=== PATIENT | male | born 1945 | race Caucasian/White ===

== ENCOUNTER 2018-10-02 10:00 | Inpatient (IN) ==
[2018-10-02 10:20] LABS: Baso % (Auto) 0.7 % (0.0-2.0); Eos # (Auto) 0.4 th/mm3 (0.0-0.4); Eos % (Auto) 7.3 % (0.0-4.0); Hematocrit 36.1 % (39.0-51.0); Hemoglobin 12.1 gm/dL (13.0-17.0); Lymph # (Auto) 1.7 th/mm3 (1.0-4.8); Lymph % (Auto) 29.9 % (9.0-44.0); Mean Corpuscular HGB Conc 33.5 % (32.0-36.0); Mean Corpuscular Volume 95.4 fL (80.0-100.0); Mean Platelet Volume 9.8 fL (7.0-11.0); Mono # (Auto) 0.6 th/mm3 (0.0-0.9); Mono % (Auto) 10.9 % (0.0-8.0); Neut % (Auto) 51.2 % (16.0-70.0); Platelet Count 241 th/mm3 (150-450); Red Blood Count 3.79 mil/mm3 (4.50-5.90); Red Cell Distribution Width 15.2 % (11.6-17.2); White Blood Count 5.8 th/mm3 (4.0-11.0)
[2018-10-02] MEDS ORDERED: Alteplase Bolus 9 MG/9 ML Syringe IV.PUSH ONE (10:21)
[2018-10-02] MEDS ORDERED: Alteplase Drip 81 MG in Syringe/Bag 1 EACH IV.SIG ONE (10:21)
--- NOTE | 2018-10-02 10:25 | CT ---
EXAM DATE: 10/02/2018 10:15 AM EST AGE/SEX: 73 years / Male INDICATIONS: Stroke alert, left side weakness. Slurred speech. CLINICAL DATA: This is the patient's initial encounter. Patient reports that signs and symptoms have been present for 1 day and indicates a pain score of Nonresponsive. MEDICAL/SURGICAL HISTORY: Non-responsive. Non-responsive. RADIATION DOSE: 47.56 CTDI (mGy) COMPARISON: . TECHNIQUE: CT of the head without contrast. Using automated exposure control and adjustment of the mA and/or kV according to patient size, radiation dose was kept as low as reasonably achievable to ob tain optimal diagnostic quality images. DICOM format image data is available electronically for revi ew and comparison. FINDINGS: Cerebrum: The ventricles are normal for age. No evidence of midline shift, mass lesion, hemorrhage or acute infarction. No extraaxial fluid collections are seen. Posterior Fossa: The cerebellum and brainstem are intact. The 4th ventricle is midline. The cerebe llopontine angle is unremarkable. Extracranial: The visualized portion of the orbits is intact. Skull: The calvaria is intact. No evidence of skull fracture. CONCLUSION: Negative CT Head non contrast. Findings were discussed with Dr. Marrufo at 10:15 AM Electronically signed by: Mazin Hitchcock MD Board Certified Radiologist 10/02/2018 10:24 AM EST
[2018-10-02 10:30] LABS: Activated Partial Thrombo Time 30.8 sec (23.4-31.7); Prothrombin Time 10.1 sec (9.8-11.6)
[2018-10-02 10:41] LABS: Creatine Kinase 156 U/L (39-308)
--- NOTE | 2018-10-02 10:42 | ED ---
HPI General Chief Complaint: Stroke Alert Stated Complaint: poss neuro/evac Time Seen by Provider: 10/02/18 10:03 Source: patient and EMS Mode of arrival: EMS Limitations: no limitations History of Present Illness HPI Narrative: 73 y/o male presents by ambulance with last seen normal at 930 as he was taking his for [place] [place] [facility] [place]. While he was at this appointment he started having issues with his speech and got weak on the left side. They called an ambulance and a stroke alert was initiated. His speech is better here in the room but he is still weak on the left side and feels tingling to that side as well. He denies any other concurrent complaints other than chronic back pain. He states he takes a baby aspirin daily. He denies prior history of stroke. Related Data Allergies Allergy/AdvReac Type Severity Reaction Status Date / Time No Known Allergies Allergy Uncoded 07/13/16 06:01 Review of Systems ROS: all other systems reviewed are negative PMFSH History History Provided By: Patient (Hypertension, high cholesterol, chronic back pain) Social History Social History Second Hand Smoke Exposure: No Smoking Status: Former smoker Tobacco Type: Cigarettes How Often Do You Have a Drink Containing Alcohol: Never Recent Travel in [facility] within the Last 8 Weeks: No Recent Out of Country Travel within the Last 8 Weeks: No Exam Narrative Exam Narrative: GENERAL: 73 y/o male in no apparent distress SKIN: Focused skin assessment warm/dry. HEAD: Atraumatic. Normocephalic. EYES: Pupils equal and round. No scleral icterus. No injection or drainage. ENT: No nasal bleeding or discharge. NECK: Trachea midline. CARDIOVASCULAR: Regular rate and rhythm. RESPIRATORY: No accessory muscle use. Clear to auscultation. Breath sounds equal bilaterally. GASTROINTESTINAL: Abdomen soft, non-tender, nondistended. MUSCULOSKELETAL: No obvious deformities. No clubbing. No cyanosis. NEUROLOGICAL: Awake and alert. Left-sided pronator drift, follows to bed before 5 seconds, left leg with minimal effort against gravity, able to feel touch but feels tingly to left-sided body normal speech. PSYCHIATRIC: Appropriate mood and affect; insight and judgment normal. Course Reevaluation(s) Reevaluation #1: Patient symptoms are starting to improve with TPA running. Patient agrees to admission Consultations Consultation #1: Dr. Wang agrees patient TPA candidate and to check CT brain and if normal to give TPA in scanner Consultation #2: Dr. Wang requests stat MRI with and without with admission Initial Documented Vital Signs Pulse Rate 67 10/02/18 10:03 Respiratory Rate 17 10/02/18 10:03 Blood Pressure 134/72 10/02/18 10:03 Pulse Oximetry 100 10/02/18 10:03 Last Documented Vital Signs Pulse Rate 61 10/02/18 11:37 Respiratory Rate 17 10/02/18 11:37 Blood Pressure 111/55 L 10/02/18 11:37 Pulse Oximetry 97 10/02/18 11:37 Critical Care Time Critical Care Time: Yes Total Critical Care Time: 50 Attestation: Aggregate critical care time was 50 minutes. Time to perform other separately billable procedures was not included in the critical care time. My time did not include minutes spent treating any other patients simultaneously or on activities that did not directly contribute to the patient's treatment. The services I provided to this patient were to treat and/or prevent clinically significant deterioration that could result in: stroke, bleed, I provided critical care services requiring my management, as noted below: Chart data review, documentation time, medication orders and management, vital sign assessments/reviewing monitor data, ordering and reviewing lab tests, ordering and interpreting/reviewing x-rays and diagnostic studies, care of the patient and discussion of the patient with the admitting physicians. NIH Stroke Scale NIHSS Time Completed NIHSS Time Completed: 10:00 NIH Stroke Scale Level of Consciousness: 0-Alert Orientation Questions: 0-Answers both correct Responds to Commands: 0-Both tasks correct Gaze Eye Movement: 0-Horizontal movement WNL Visual Nj: 0-No visual field defect Facial Movement: 0-Normal Motor Functions Arm LEFT: 2-Falls before 10 seconds Motor Functions Arm RIGHT: 0-No drift Motor Functions Leg LEFT: 3-No effort against gravity Motor Functions Leg RIGHT: 0-No drift Limb Ataxia: 0-No ataxia Sensory Loss: 1-Mild sensory loss Best Language: 0-Normal Articulation: 0-Normal Extinction or Inattention Sensory: 0-Absent Total: 6 Medical Decision Making MDM Narrative Medical decision making narrative: Stroke alert was initiated when patient arrived and initial examination showed a NIH of 6. I talked with the neurologist and went with patient to CT. I walked over to the radiologist and reviewed images and agree no acute process. TPA started to be mixed and was given before CTAs at 1024. Proceed with CTA imaging. Patient agreed to the TPA. Patient will be closely monitored. Medical Screen Exam Complete: Yes Emergency Medical Condition: Yes Differential Diagnosis Differential Diagnosis: bleed, stroke, mass Lab Data Lab results reviewed: Yes I reviewed the patient's lab results. Result diagrams: 10/02/18 10:04 Lab Results 10/02/18 10/02/18 10/02/18 Range/Units 10:04 10:04 10:04 WBC 5.8 (4.0-11.0) th/mm3 RBC 3.79 L (4.50-5.90) mil/mm3 Hgb 12.1 L (13.0-17.0) gm/dL POC Hgb (Calc) (13.0-17.0) g/dL Hct 36.1 L (39.0-51.0) % POC Hct (39-51.0) % MCV 95.4 (80.0-100.0) fL MCH 32.0 (27.0-34.0) pg MCHC 33.5 (32.0-36.0) % RDW 15.2 (11.6-17.2) % Plt Count 241 (150-450) th/mm3 MPV 9.8 (7.0-11.0) fL Neut % (Auto) 51.2 (16.0-70.0) % Lymph % (Auto) 29.9 (9.0-44.0) % [place] % (Auto) 10.9 H (0.0-8.0) % Eos % (Auto) 7.3 H (0.0-4.0) % Baso % (Auto) 0.7 (0.0-2.0) % Neut # (Auto) 3.0 (1.8-7.7) th/mm3 Lymph # (Auto) 1.7 (1.0-4.8) th/mm3 [place] # (Auto) 0.6 (0.0-0.9) th/mm3 Eos # (Auto) 0.4 (0.0-0.4) th/mm3 Baso # (Auto) 0.0 (0.0-0.2) th/mm3 WBC Differential . Differential Comment Auto diff final PT 10.1 (9.8-11.6) sec INR 1.0 Ratio APTT 30.8 (23.4-31.7) sec Fibrinogen 337 (227-377) mg/dL POC Sodium (137-144) mmol/L POC Potassium (3.6-5.0) mmol/L POC Chloride (102-111) mmol/L POC BUN (5-21) mg/dL POC Creatinine (0.6-1.3) mg/dL POC Glucose (68-110) mg/dL Total Creatine Kinase (39-308) U/L Troponin I (0.02-0.05) ng/mL Blood Type A Positive Antibody Screen Negative 10/02/18 Range/Units 10:04 WBC (4.0-11.0) th/mm3 RBC (4.50-5.90) mil/mm3 Hgb (13.0-17.0) gm/dL POC Hgb (Calc) 11.9 L (13.0-17.0) g/dL Hct (39.0-51.0) % POC Hct 35.0 L (39-51.0) % MCV (80.0-100.0) fL MCH (27.0-34.0) pg MCHC (32.0-36.0) % RDW (11.6-17.2) % Plt Count (150-450) th/mm3 MPV (7.0-11.0) fL Neut % (Auto) (16.0-70.0) % Lymph % (Auto) (9.0-44.0) % [place] % (Auto) (0.0-8.0) % Eos % (Auto) (0.0-4.0) % Baso % (Auto) (0.0-2.0) % Neut # (Auto) (1.8-7.7) th/mm3 Lymph # (Auto) (1.0-4.8) th/mm3 [place] # (Auto) (0.0-0.9) th/mm3 Eos # (Auto) (0.0-0.4) th/mm3 Baso # (Auto) (0.0-0.2) th/mm3 WBC Differential Differential Comment PT (9.8-11.6) sec INR Ratio APTT (23.4-31.7) sec Fibrinogen (227-377) mg/dL POC Sodium 141 (137-144) mmol/L POC Potassium 4.7 (3.6-5.0) mmol/L POC Chloride 101 L (102-111) mmol/L POC BUN 9 (5-21) mg/dL POC Creatinine 1.3 (0.6-1.3) mg/dL POC Glucose 131 H (68-110) mg/dL Total Creatine Kinase 156 (39-308) U/L Troponin I Less than 0.02 L (0.02-0.05) ng/mL Blood Type Antibody Screen Imaging Data Attestation: I personally reviewed and interpreted this imaging study as follows : Radiologist's impression: Chest X-Ray 10/02/18 10:03 CONCLUSION: No acute cardiopulmonary abnormality is identified. Stable postsurgical findings in the right hemithorax. Head CT 10/02/18 10:03 CONCLUSION: Negative CT Head non contrast. Findings were discussed with Dr. Marrufo at 10:15 AM Head CTA 10/02/18 10:03 CONCLUSION: Negative CTA Head. Report was called by [Naldo Wang at 10:40 AM ] Neck CTA 10/02/18 10:03 CONCLUSION: No significant carotid stenosis Discharge Plan Discharge Disposition Patient Disposition: ED Admit(ED Internal Use Only) Discharge Order Discharge Orders: ED Use Only Admit Order (Routine); Ordered 10/02/18 Ordered By: Seda Marrufo Discharge Details Diagnosis: Acute ischemic stroke Physicians Team ED Provider: Seda Marrufo Primary Care Provider: Jocelyn Holland Other Providers: Dylan Wang Discharge Interventions Interventions: Vital Signs Last Done: 10/02/18 10:40 Status ED Status: Admitted Patient
--- NOTE | 2018-10-02 10:46 | CT ---
EXAM DATE: 10/02/2018 10:34 AM EST AGE/SEX: 73 years / Male INDICATIONS: Stroke alert, left side weakness. Slurred speech. CLINICAL DATA: This is the patient's initial encounter. Patient reports that signs and symptoms have been present for 1 day and indicates a pain score of Nonresponsive. MEDICAL/SURGICAL HISTORY: Non-responsive. Non-responsive. RADIATION DOSE: 28.87 CTDI (mGy) ; Combined studies COMPARISON: [facility] [place], CT HEAD W/O CONTRAST, 10/02/2018. . TECHNIQUE: Volumetric scanning was performed using a multi-row detector CT scanner during bolus infu cata of 100 ml Visipaque 320 (iodixanol) nonionic water-soluble contrast as a cumulative dose for mu ltiple exams. The data was post processed with a variety of visualization algorithms including full volume maximum intensity projection, multi-planar sliding thin slab reformation, curved planar refor mation, and surface rendering techniques. Using automated exposure control and adjustment of the mA and/or kV according to patient size, radiation dose was kept as low as reasonably achievable to obtai n optimal diagnostic quality images. DICOM format image data is available electronically for review and comparison. FINDINGS: There is excellent visualization of the major intracranial arteries out to the second-order branch ve ssels. There is no evidence for aneurysm, vessel truncation or stenosis, and no evidence for vascula r malformation. CONCLUSION: Negative CTA Head. Report was called by [Naldo Wang at 10:40 AM ] Electronically signed by: Mazin Hitchcock MD Board Certified Radiologist 10/02/2018 10:44 AM EST
--- NOTE | 2018-10-02 10:56 | XR ---
EXAM DATE: 10/02/2018 10:53 AM EST AGE/SEX: 73 years / Male INDICATIONS: Stroke alert. CLINICAL DATA: This is the patient's initial encounter. Patient reports that signs and symptoms have been present for 1 day and indicates a pain score of 0/10. MEDICAL/SURGICAL HISTORY: Carcinoma, lung. . Right lung thoracotomy. COMPARISON: [facility], CT CHEST W/O CONTRAST, 08/21/2018. [facility], XR CHEST PA AND LAT, 07/27/2016. . FINDINGS: Portable AP view of the chest demonstrates cardiac silhouette size at the upper limits for normal. EK G lines overlie the patient. There are stable postsurgical changes in the right hemithorax related to prior lung resection. Lungs are underinflated with likely atelectasis at the lung bases. No effusion , consolidation, or pneumothorax is identified. Bones and soft tissues demonstrate no acute abnormali ty. CONCLUSION: No acute cardiopulmonary abnormality is identified. Stable postsurgical findings in the right hemitho rax. Electronically signed by: Mazin Brewer MD Board Certified Radiologist 10/02/2018 10:55 AM EST
--- NOTE | 2018-10-02 11:00 | CT ---
EXAM DATE: 10/02/2018 10:53 AM EST AGE/SEX: 73 years / Male INDICATIONS: Stroke alert, left side weakness. Slurred speech. CLINICAL DATA: This is the patient's initial encounter. Patient reports that signs and symptoms have been present for 1 day and indicates a pain score of Nonresponsive. MEDICAL/SURGICAL HISTORY: Non-responsive. Non-responsive. RADIATION DOSE: 28.87 CTDI (mGy) ; Combined studies COMPARISON: No prior exams available for comparison. TECHNIQUE: Volumetric scanning was performed using a multirow detector CT scanner during bolus infus ion of 100 ml Visipaque 320 (iodixanol) nonionic water-soluble contrast as a cumulative dose for mul tiple exams. The data was postprocessed with a variety of visualization algorithms including full-v olume maximum intensity projection, multiplanar sliding thin-slab reformation, curved-planar reformat ion, and surface-rendering techniques. Using automated exposure control and adjustment of the mA and /or kV according to patient size, radiation dose was kept as low as reasonably achievable to obtain o ptimal diagnostic quality images. DICOM format image data is available electronically for review and comparison. Percent stenosis is calculated using the diameter of the stenotic region over the diameter of the nor mal distal internal carotid artery. FINDINGS: Aortic Arch: There is a three-vessel origin of the great vessels from the aorta. No evidence of ost ial narrowing Right Carotid: The common carotid artery is intact. The carotid bulb has a normal configuration wit hout ulceration or narrowing. The internal carotid artery lumen is smooth without stenosis. The ext ernal carotid artery is intact. Left Carotid: Slight focal eccentric stenosis at the origin of the internal carotid artery producing about 30% luminal narrowing. Beyond this proximal disease, the ICA regains normal caliber and is wid dennys patent to the skull base. Vertebrals: The vertebral arteries have a symmetric diameter. No stenotic lesions are seen. CONCLUSION: No significant carotid stenosis Electronically signed by: Mazin Hitchcock MD Board Certified Radiologist 10/02/2018 10:59 AM EST
[2018-10-02] MEDS: Sod Chloride 0.9% Inj 1,000 ML IV.CONT SCH (11:07)
--- NOTE | 2018-10-02 11:40 | MB ---
cc: Dylan Wang MD DATE: 10/02/2018 HISTORY OF PRESENT ILLNESS: The patient is a 73-year-old right-handed man with hypertension, borderline diabetes, lung cancer removed totally 3 years ago without any chemotherapy or radiation. He has not taken aspirin today, and at about 9:30 this morning he started to have trouble with left-sided weakness, some speech problems. Came in, his NIH stroke scale was 6 by the emergency room physician. He was weak in the left leg and had some slurred speech, difficulty talking, and a left-sided pronator drift. Left leg minimal effort against gravity, tingling on the left side of his body. As such, we gave him IV TPA after his CT of the brain was negative. CTA of the neck and [place] of [place] now reported by radiology as normal. The patient has normalized. He is in sinus rhythm on telemetry. REVIEW OF SYSTEMS: He denies any hypercholesterolemia, [place], CABG, stent, angioplasty, atrial fibrillation, Coumadin, heart problems, renal or hepatic disease, thyroid disease, lupus, ulcer, seizure, stroke, active cancer. SOCIAL HISTORY: Not a smoker or drinker, lives with his . FAMILY HISTORY: Positive for cancer in his father. Negative for seizure. Positive for stroke in his mother. MEDICATIONS: He does not take an aspirin a day. PHYSICAL EXAMINATION: VITAL SIGNS: Sinus rhythm, 124/66, 85, 17. NECK: There were no carotid bruits. HEART: Regular rate and rhythm. I did not detect a murmur. NEUROLOGIC: Pupils are equal. Visual marrero are full. Extraocular movements intact without nystagmus. Face is symmetric with normal sensation. Tongue was midline. No drift. Normal strength in upper and lower extremities bilaterally. DTRs trace throughout. Toes downgoing bilaterally. Pinprick is intact throughout upper and lower extremities and face bilaterally. He is not ataxic on [id number] or [id number]. Speech is fluent. He is not aphasic. He can name, repeat, calculate. Language is normal. No slurred speech. LABORATORY DATA: CBC today is normal. BMP is normal. Glucose 131. Troponin, CPKs negative. He has had normal PSAs this year. Coagulation studies are normal. CTA of the neck, no significant carotid stenosis. Vertebrals were normal. CTA of the head negative. CT of the head does appear to be normal, vertebrobasilar system looks fine, posterior cerebral arteries. The MCAs fill well. CAT scan of the brain read as negative. Review of the films, do appear to be normal. Neck CTA film reviewed. Carotids do look intact, no major stenosis. Vertebral arteries also look patent bilaterally. IMPRESSION: Stroke alert. His NIH stroke scale was 6, it is now 0. He got TPA. We will do a stroke workup and further recommendations will be based on what we find on the MRI, but he looks well neurologically at this time. MD DAMASO Horne/era , 11:17 AM , 11:26 AM
[2018-10-02] MEDS ORDERED: Bisacodyl 10 MG Supp RECTAL PRN (12:14)
[2018-10-02] MEDS ORDERED: Dextrose 50% in Water 50 ML Vial IV.PUSH PRN (12:16)
--- NOTE | 2018-10-02 12:29 | P.HPIM ---
History of Present Illness Primary Care Physician: Jocelyn Holland DO Chief Complaint: Left-sided weakness History of Present Illness: 73-year-old male with a history of borderline diabetes and hypertension who was taking his [id number] to the [facility] today when he experienced left facial drooping, left arm and lower extremity weakness with onset at approximately 8:45 AM. He states that he does not remember anything after that until he reached our emergency room. In the emergency room his left facial and extremity weakness persisted and he was offered TPA. TPA was given at approximately 10 AM and subsequently his symptoms began to improve. He is currently symptom-free, able to move both left upper and lower extremity without any deficits. His strength has returned to 100%. He has no slurring of speech, no memory deficits, no foggy mentation, no facial droop. His visual marrero are within normal limits. He is very grateful for the TPA and wants to go home. I explained to him that we have a protocol when we get TPA and it requires that he remain in the hospital for at least 1 more day with monitoring in the ICU. He is agreeable to this. He denies any cardiac arrhythmias, denies any chest pain. He denies any recent nausea vomiting or diarrhea. He states he does not eat breakfast as a habit. He denies any recent fevers or infection. Inpatient Certification Inpatient Certification: I certify that the inpatient services were ordered in accordance with Medicare regulations governing the order. This includes certification that hospital inpatient services are reasonable and necessary and in the case of services not specified as inpatient-only under 42 CFR 419.22(n), that they are appropriately provided as inpatient services in accordance to with the 2-midnight benchmark under 43 CFR 412.3(e) Estimated Total Length of Stay (Days): 2 Plans for Post Hospital Care: Home Review of Systems Review of Systems: all other systems reviewed are negative [facility] Medical History Medical History Borderline diabetes (Acute) History of lung cancer (Acute) Hypertension (Acute) Family History Family History Other Hypertension Social History Social History Second Hand Smoke Exposure: No Smoking Status: Former smoker Tobacco Type: Cigarettes How Often Do You Have a Drink Containing Alcohol: Never Recent Travel in [place] within the Last 8 Weeks: No Recent Out of Country Travel within the Last 8 Weeks: No Immunization History Tetanus Immunization: Unsure Medications and Allergies Allergies Allergy/AdvReac Type Severity Reaction Status Date / Time No Known Allergies Allergy Uncoded 07/13/16 06:01 Active Medications: Active Medications Al Hydroxide/Mg Hydroxide (Milk Of Magnesia Liq) 30 ml PO Q12H PRN PRN Reason: Mild Constipation Bisacodyl (Dulcolax Supp) 10 mg RECTAL DAILY PRN PRN Reason: SEVERE CONSITIPATION Chlorhexidine Gluconate (Chlorhexidine 2% Cloth) 3 pack TOPICAL DAILY@0400 [facility] Stop: 10/08/18 03:59 Chlorhexidine Gluconate (Chlorhexidine 2% Cloth) 3 pack TOPICAL DAILY@0400 PRN PRN Reason: Extra cloth needed Stop: 10/08/18 03:59 Dextrose (D50w Vial) 50 ml IV.PUSH UNSCH PRN PRN Reason: PER HYPOGLYCEMIA PROTOCOL Glucagon (Glucagon Inj) 1 mg OTHER PRN PRN PRN Reason: for Hypoglycemia Protocol Sodium Chloride (Ns Inj) 1,000 mls @ 70 mls/hr IV.CONT .[id number] [facility] Last Admin: 10/02/18 11:07 Dose: 70 mls/hr Insulin Aspart (Novolog Insulin Correctional Sugar Inj) 0 unit SQ ACHS [facility]; Protocol Lactulose (Lactulose Liq) 30 ml PO DAILY PRN PRN Reason: SEVERE CONSITIPATION Sennosides (Senokot) 17.2 mg PO Q12H PRN PRN Reason: Moderate Constipation Sodium Chloride (Ns Flush) 2 ml IV.FLUSH BID [facility] Sodium Chloride (Ns Flush) 2 ml IV.FLUSH PRN PRN PRN Reason: FLUSH AFTER USING IV ACCESS Physical Exam Vital signs: Last Vital Signs Pulse 61 10/02/18 11:37 Resp 17 10/02/18 11:37 BP 111/55 L 10/02/18 11:37 Pulse Ox 97 10/02/18 11:37 Intake & Output 09/30/18 10/01/18 10/02/18 10/03/18 06:59 06:59 06:59 06:59 Intake Total 100 / 100 Balance 100 / 100 Weight 116.1 kg Narrative: GENERAL: AAOx3, no acute distress, obese SKIN: Warm and dry, no rashes. HEAD: Atraumatic. Normocephalic. EYES: Pupils equal, round, reactive to light. No scleral icterus. No injection or drainage. ENT: No nasal bleeding or discharge. Moist mucous membranes. Nonerythematous oropharynx. NECK: Trachea midline. No JVD. Thyroid size within normal limits. CARDIOVASCULAR: Regular rate and rhythm. No murmur, no gallops, no rubs. RESPIRATORY: Clear and equal to auscultation bilaterally. No crackles, no wheezes. No accessory muscle use. GASTROINTESTINAL: Large abdomen ,abdomen soft, non-tender, nondistended, normal active bowel sounds. Hepatic and splenic margins not palpable. MUSCULOSKELETAL: Extremities without clubbing or cyanosis. No obvious deformities. No edema. NEUROLOGICAL: Awake and alert. No obvious cranial nerve deficits. Motor grossly within normal limits. No focal deficits. Five out of 5 muscle strength in the arms and legs. Normal speech. PSYCHIATRIC: Appropriate mood and affect; insight and judgment normal. Results Labs CBC & Chem 7: 10/02/18 10:04 Imaging Impressions Chest X-Ray 10/02/18 10:03 CONCLUSION: No acute cardiopulmonary abnormality is identified. Stable postsurgical findings in the right hemithorax. Head CT 10/02/18 10:03 CONCLUSION: Negative CT Head non contrast. Findings were discussed with Dr. Marrufo at 10:15 AM Head CTA 10/02/18 10:03 CONCLUSION: Negative CTA Head. Report was called by [Naldo Wang at 10:40 AM ] Neck CTA 10/02/18 10:03 CONCLUSION: No significant carotid stenosis Caprini VTE Risk Assessment Caprini VTE Risk Assessment: Moderate/High Risk (score >= 2) Caprini Risk Assessment Model: Point Value = 1 Point Value = 2 Point Value = 3 Point Value = 5 Age 41-60 Minor surgery BMI > 25 kg/m2 Swollen legs Varicose veins or History of unexplained or recurrent spontaneous Oral contraceptives or hormone replacement Sepsis (< 1 month) Serious lung disease, including pneumonia (< 1 month) Abnormal pulmonary function Acute myocardial infarction Congestive heart failure (< 1 month) History of inflammatory bowel disease Medical patient at bed rest Age 61-74 Arthroscopic surgery Major open surgery (> 45 min) Laparoscopic surgery (> 45 min) Malignancy Confined to bed (> 72 hours) Immobilizing plaster cast Central venous access Age >= 75 History of VTE Family history of VTE Factor V Leiden Prothrombin [id number] Lupus anticoagulant Anticardiolipin antibodies Elevated serum homocysteine Heparin-induced thrombocytopenia Other congenital or acquired thrombophilia Stroke (< 1 month) Elective arthroplasty Hip, pelvis, or leg fracture Acute spinal cord injury (< 1 month) Prophylaxis Regimen: Total Risk Factor Score Risk Level Prophylaxis Regimen 0-1 Low Early ambulation 2 Moderate Order ONE of the following: *Sequential Compression Device (SCD) *Heparin 5000 units SQ BID 3-4 Higher Order ONE of the following medications: *Heparin 5000 units SQ TID *Enoxaparin/Lovenox 40 mg SQ daily (WT < 150 kg, CrCl > 30 mL/min) *Enoxaparin/Lovenox 30 mg SQ daily (WT < 150 kg, CrCl > 10-29 mL/min) *Enoxaparin/Lovenox 30 mg SQ BID (WT < 150 kg, CrCl > 30 mL/min) AND/OR *Sequential Compression Device (SCD) 5 or more Highest Order ONE of the following medications: *Heparin 5000 units SQ TID (Preferred with Epidurals) *Enoxaparin/Lovenox 40 mg SQ daily (WT < 150 kg, CrCl > 30 mL/min) *Enoxaparin/Lovenox 30 mg SQ daily (WT < 150 kg, CrCl > 10-29 mL/min) *Enoxaparin/Lovenox 30 mg SQ BID (WT < 150 kg, CrCl > 30 mL/min) AND *Sequential Compression Device (SCD) Assessment and Plan Plan Acute CVA s/p TPA Patient had onset of left upper and lower extremity weakness with left facial droop and possible loss of consciousness Clinically this appears to be a therapeutic cure following TPA administration CTA of carotids within normal limits CTA of head within normal limits Follow overnight in IMC with serial neuro checks per TPA protocol Will order 2D echocardiogram Appreciate neurology consult Borderline diabetes Sliding scale insulin coverage with Accu-Cheks Diabetic diet Hypertension Permissive hypertension today, resume home meds when cleared by neurology h/o lung cancer Patient had resection in his left lobe Consider this finding if any chest x-ray revealed abnormality Patient is asymptomatic DVT prophylaxis SCD hose, patient received TPA this morning
--- NOTE | 2018-10-02 16:25 | ECG ---
Date Performed: 10/02/2018 Time Performed: 11:08:20 PTAGE: 73 years EKG: Sinus rhythm LOW QRS VOLTAGE IN EXTREMITY LEADS BORDERLINE ECG Compared to PREVIOUS TRACING , T-wave changes slightly improved, QRS voltage somewhat lower in precor dial leads. PREVIOUS TRACIN07/12/2016 10.58 DOCTOR: Mike Friedman Interpretating Date/Time 10/02/2018 16:24:50
--- NOTE | 2018-10-02 16:38 | ECHRPT ---
Indication: CONCLUSIONS Technically difficult study with limited acoustic window visualization. Normal left ventricular size. Wall thickness is normal. The left ventricular systolic function is low normal with an estimated ejection fraction in the rang e of 50- 55%. 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 [id number] mitral valve regurgitation. There is a small pericardial effusion present. BP: / HR: Rhythm: Sinus MEASUREMENTS (Male / Female) Normal Values Technical Quality:Poor 2D ECHO LV Diastolic Diameter PLAX 5.5 cm 4.2 - 5.9 / 3.9 - 5.3 cm LV Systolic Diameter PLAX 4.3 cm IVS Diastolic Thickness 0.9 cm 0.6 - 1.0 / 0.6 - 0.9 cm LVPW Diastolic Thickness 0.9 cm 0.6 - 1.0 / 0.6 - 0.9 cm LV Relative Wall Thickness 0.3 RV Internal Dim ED PLAX 3.1 cm LVOT Diameter 2.0 cm Aortic Root Diameter 2.8 cm LA Systolic Diameter LX 3.9 cm 3.0 - 4.0 / 2.7 - 3.8 cm DOPPLER AV Peak Velocity 183.0 cm/s AV Peak Gradient 13.4 mmHg LVOT Peak Velocity 129.0 cm/s LVOT Peak Gradient 6.7 mmHg AV Area Cont Eq pk 2.2 cm Mitral E Point Velocity 85.9 cm/s Mitral A Point Velocity 100.0 cm/s Mitral E to A Ratio 0.9 LV E' Lateral Velocity 9.4 cm/s Mitral E to LV E' Lateral Ratio 9.2 LV E' Septal Velocity 8.3 cm/s Mitral E to LV E' Septal Ratio 10.4 TR Peak Velocity 102.0 cm/s TR Peak Gradient 4.2 mmHg Right Atrial Pressure 10.0 mmHg Pulmonary Artery Systolic Pressu 14.2 mmHg Right Ventricular Systolic Press 14.2 mmHg PV Peak Velocity 90.3 cm/s PV Peak Gradient 3.3 mmHg FINDINGS LEFT VENTRICLE Normal left ventricular size. Wall thickness is normal. The left ventricular systolic function is low normal with an estimated ejection fraction in the rang e of 50- 55%. RIGHT VENTRICLE Normal right ventricular size and systolic function. LEFT ATRIUM The left atrial size is normal. RIGHT ATRIUM The right atrial size is normal. 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 No atrial level shunt is demonstrated by color flow Doppler interrogation. AORTA The aortic root and proximal ascending aorta are normal in size on limited imaging. MITRAL VALVE Lrfzc-[id number]-[id number] mitral valve regurgitation. AORTIC VALVE Trileaflet aortic valve. No aortic valve stenosis or regurgitation. TRICUSPID VALVE Structurally normal tricuspid valve. No tricuspid valve stenosis or regurgitation. PULMONARY VALVE No pulmonary valve regurgitation or stenosis. VESSELS The inferior vena cava is normal in size. PERICARDIUM There is a small pericardial effusion present. Adin Nichols (Electronically Signed) Final Date:02 October 2018 16:37
[2018-10-02] MEDS: Insulin NovoLOG Aspart Correctional Sugar Inj SQ SCH ×2 (16:45→20:05)
--- NOTE | 2018-10-02 17:20 | MR ---
EXAM DATE: 10/02/2018 5:14 PM EST AGE/SEX: 73 years / Male INDICATIONS: CVA. Left sided weakness and slurred speech. CLINICAL DATA: This is the patient's initial encounter. Patient reports that signs and symptoms have been present for 1 day and indicates a pain score of 0/10. MEDICAL/SURGICAL HISTORY: Hypertension. Carcinoma, lung. . Cancer removed. COMPARISON: [facility], MR BRAIN W AND W/O CONTRAST, 06/28/2016. . TECHNIQUE: Multiplanar, multisequence examination of the brain was performed without contrast. FINDINGS: Cerebrum: The ventricles are normal for age with mild to moderate atrophic change with sulcal and ve ntricular prominence. No evidence of midline shift, mass lesion, hemorrhage or acute infarction. No extraaxial fluid collections are seen. The pituitary gland and suprasellar cistern are normal in con figuration. White Matter: No significant signal abnormalities are seen in the white matter. Posterior Fossa: The cerebellum and brainstem are intact. The 4th ventricle is midline. The cerebel lopontine angle is unremarkable. The cerebellar tonsils are normal in position. Diffusion Imaging: No focal areas of restricted diffusion are seen. No evidence of acute infarction . Extracranial: The visualized portions of the orbits are unremarkable. A stable small retention cyst is again noted in the left maxillary sinus. CONCLUSION: 1. No acute hemorrhage, mass or evidence of infarction. 2. Age-appropriate atrophic changes. 3. Stable small retention cyst in the left maxillary sinus. Electronically signed by: Kendall Catherine MD Board Certified Radiologist 10/02/2018 5:18 PM EST
[2018-10-03] MEDS: Sod Chloride 0.9% Inj 1,000 ML IV.CONT SCH ×2 (03:34→06:56)
[2018-10-03] MEDS ORDERED: Chlorhexidine Gluconate 2% 1 Pack (2 Cloths) TOPICAL PRN (04:00)
[2018-10-03] MEDS ORDERED: Chlorhexidine Gluconate 2% 1 Pack (2 Cloths) TOPICAL SCH (04:00)
--- NOTE | 2018-10-03 08:05 | P.PNNEU ---
Subjective Active Medications: Active Medications Al Hydroxide/Mg Hydroxide (Milk Of Magnesia Liq) 30 ml PO Q12H PRN PRN Reason: Mild Constipation Bisacodyl (Dulcolax Supp) 10 mg RECTAL DAILY PRN PRN Reason: SEVERE CONSITIPATION Chlorhexidine Gluconate (Chlorhexidine 2% Cloth) 3 pack TOPICAL DAILY@0400 [facility] Stop: 10/08/18 03:59 Last Admin: 10/03/18 03:45 Dose: Not Given Chlorhexidine Gluconate (Chlorhexidine 2% Cloth) 3 pack TOPICAL DAILY@0400 PRN PRN Reason: Extra cloth needed Stop: 10/08/18 03:59 Dextrose (D50w Vial) 50 ml IV.PUSH UNSCH PRN PRN Reason: PER HYPOGLYCEMIA PROTOCOL Glucagon (Glucagon Inj) 1 mg OTHER PRN PRN PRN Reason: for Hypoglycemia Protocol Sodium Chloride (Ns Inj) 1,000 mls @ 70 mls/hr IV.CONT .[id number] [facility] Last Admin: 10/03/18 06:56 Dose: 70 mls/hr Insulin Aspart (Novolog Insulin Correctional Sugar Inj) 0 unit SQ [facility]; Protocol Last Admin: 10/02/18 20:05 Dose: Not Given Lactulose (Lactulose Liq) 30 ml PO DAILY PRN PRN Reason: SEVERE CONSITIPATION Sennosides (Senokot) 17.2 mg PO Q12H PRN PRN Reason: Moderate Constipation Sodium Chloride (Ns Flush) 2 ml IV.FLUSH BID [facility] Last Admin: 10/02/18 20:06 Dose: 2 ml Sodium Chloride (Ns Flush) 2 ml IV.FLUSH PRN PRN PRN Reason: FLUSH AFTER USING IV ACCESS Allergies/Adverse Reactions: Allergies Allergy/AdvReac Type Severity Reaction Status Date / Time No Known Allergies Allergy Uncoded 07/13/16 06:01 Physical Exam Vital signs: Vital Signs 10/02/18 10:03 10/02/18 10:17 10/02/18 10:22 Temperature Pulse Rate 67 67 Respiratory Rate 17 17 Blood Pressure 134/72 121/69 Pulse Oximetry 100 94 L 100 10/02/18 10:40 10/02/18 10:43 10/02/18 11:02 Temperature Pulse Rate 72 72 Respiratory Rate 16 17 Blood Pressure 132/60 124/66 Pulse Oximetry 100 100 100 10/02/18 11:37 10/02/18 12:07 10/02/18 13:01 Temperature 98.7 F Pulse Rate 61 77 77 Respiratory Rate 17 17 Blood Pressure 111/55 L 131/62 Pulse Oximetry 97 100 10/02/18 13:02 10/02/18 13:36 10/02/18 14:00 Temperature Pulse Rate 82 77 73 Respiratory Rate 29 H 26 H 17 Blood Pressure 142/74 H 120/61 Pulse Oximetry 93 L 96 10/02/18 14:58 10/02/18 15:00 10/02/18 15:09 Temperature Pulse Rate 83 77 72 Respiratory Rate 18 17 26 H Blood Pressure 142/69 H 144/67 H Pulse Oximetry 96 10/02/18 15:39 10/02/18 16:00 10/02/18 16:09 Temperature 98.6 F Pulse Rate 69 73 72 Respiratory Rate 14 13 18 Blood Pressure 132/78 116/53 L Pulse Oximetry 10/02/18 16:39 10/02/18 17:24 10/02/18 17:29 Temperature Pulse Rate 66 68 Respiratory Rate 16 24 Blood Pressure 112/57 L 146/65 H Pulse Oximetry 94 L 10/02/18 17:39 10/02/18 18:00 10/02/18 18:09 Temperature Pulse Rate 66 67 68 Respiratory Rate 17 21 15 Blood Pressure 130/60 129/60 Pulse Oximetry 10/02/18 19:00 10/02/18 20:00 10/02/18 21:00 Temperature 98.3 F Pulse Rate 74 68 68 Respiratory Rate 19 20 22 Blood Pressure 126/61 135/60 135/60 Pulse Oximetry 94 L 10/02/18 22:00 10/02/18 23:00 10/03/18 00:00 Temperature 98.7 F Pulse Rate 71 62 67 Respiratory Rate 24 15 18 Blood Pressure 124/58 L 153/67 H 137/61 Pulse Oximetry 10/03/18 01:00 10/03/18 02:00 10/03/18 03:00 Temperature Pulse Rate 62 64 66 Respiratory Rate 22 17 21 Blood Pressure 134/65 152/64 H 155/65 H Pulse Oximetry 95 10/03/18 04:00 10/03/18 05:00 10/03/18 06:00 Temperature 97.9 F Pulse Rate 72 70 72 Respiratory Rate 21 19 21 Blood Pressure 133/60 166/70 H 148/57 H Pulse Oximetry 95 95 Intake & Output 10/02/18 10/03/18 10/03/18 18:59 06:59 18:59 Intake Total 740 / 740 1000 / 1000 Output Total 1750 / 1750 Balance -1010 / -1010 1000 / 1000 Weight 116.2 kg 116.8 kg Intake: IV 100 / 100 1000 / 1000 NS Inj 1,000 ML @ 70 mls/hr IV. 1000 / 1000 CONT .[id number] [facility] Rx#:[id number] Activase Drip 81 MG In Bag/ 100 / 100 Syringe 1 EACH @ 81 mls/hr IV. SIG ONCE ONE Rx#:[id number] Oral 640 / 640 Output: Urine 1750 / 1750 Other: # Voids 2 # Incontinent Voids 0 2 # Bowel Movements 1 Weight On Admission 116.2 kg Narrative: sr vff nl exam Objective Laboratory Results - last 24 hr 10/02/18 10/02/18 10/02/18 10:04 10:04 10:04 WBC 5.8 RBC 3.79 L Hgb 12.1 L POC Hgb (Calc) Hct 36.1 L POC Hct MCV 95.4 MCH 32.0 MCHC 33.5 RDW 15.2 Plt Count 241 MPV 9.8 Neut % (Auto) 51.2 Lymph % (Auto) 29.9 [place] % (Auto) 10.9 H Eos % (Auto) 7.3 H Baso % (Auto) 0.7 Neut # (Auto) 3.0 Lymph # (Auto) 1.7 [place]yo # (Auto) 0.6 Eos # (Auto) 0.4 Baso # (Auto) 0.0 WBC Differential . Differential Comment Auto diff final PT 10.1 INR 1.0 APTT 30.8 Fibrinogen 337 POC Sodium POC Potassium POC Chloride POC BUN POC Creatinine POC Glucose Total Creatine Kinase Troponin I Nasal Screen MRSA (PCR) Blood Type A Positive Antibody Screen Negative 10/02/18 10/02/18 10:04 13:05 WBC RBC Hgb POC Hgb (Calc) 11.9 L Hct POC Hct 35.0 L MCV MCH MCHC RDW Plt Count MPV Neut % (Auto) Lymph % (Auto) [place] % (Auto) Eos % (Auto) Baso % (Auto) Neut # (Auto) Lymph # (Auto) [place] # (Auto) Eos # (Auto) Baso # (Auto) WBC Differential Differential Comment PT INR APTT Fibrinogen POC Sodium 141 POC Potassium 4.7 POC Chloride 101 L POC BUN 9 POC Creatinine 1.3 POC Glucose 131 H Total Creatine Kinase 156 Troponin I Less than 0.02 L Nasal Screen MRSA (PCR) Not detected Blood Type Antibody Screen Review/Management - Review/Management Plan: imp mri neg old or new cva ctax2 neg ldl pend other labs ordered echo nl ef some atrial septal changes will have cards see and if they clear and echo done he could dc on 325 asa and do o/p cardionet s/p tpa
[2018-10-03] MEDS: Insulin NovoLOG Aspart Correctional Sugar Inj SQ SCH ×3 (08:39→17:28)
--- NOTE | 2018-10-03 10:26 | P.PNIM ---
Subjective Interval history: Significant improvement with TPA. Patient has no complaints of any residual neurological symptoms. Further imaging pending today. Physical Exam Vital signs: Last Vital Signs Temp 98.3 F 10/03/18 08:00 Pulse 88 10/03/18 09:00 Resp 17 10/03/18 09:00 BP 147/67 H 10/03/18 09:00 Pulse Ox 95 10/03/18 09:00 Intake & Output 10/01/18 10/02/18 10/03/18 10/04/18 06:59 06:59 06:59 06:59 Intake Total 1740 / 1740 Output Total 1750 / 1750 Balance -10 / -10 Weight 116.8 kg Narrative: GENERAL: NAD, A&Ox3 HEAD: Normocephalic. NECK: Supple, trachea midline. No lymphadenopathy. EYES: No scleral icterus. No injection or drainage. CARDIOVASCULAR: Regular rate and rhythm without murmurs, gallops, or rubs. RESPIRATORY: Breath sounds equal bilaterally. No accessory muscle use. GASTROINTESTINAL: Abdomen soft, non-tender, nondistended. MUSCULOSKELETAL: No cyanosis, or edema. SKIN: Warm and dry. NEURO: No focal neurological deficits. Results Labs CBC & Chem 7: 10/02/18 10:04 Imaging Imaging: Impressions Chest X-Ray 10/02/18 10:03 CONCLUSION: No acute cardiopulmonary abnormality is identified. Stable postsurgical findings in the right hemithorax. Head CT 10/02/18 10:03 CONCLUSION: Negative CT Head non contrast. Findings were discussed with Dr. Marrufo at 10:15 AM Head CTA 10/02/18 10:03 CONCLUSION: Negative CTA Head. Report was called by [Naldo Wang at 10:40 AM ] Neck CTA 10/02/18 10:03 CONCLUSION: No significant carotid stenosis Head MRI 10/02/18 11:21 CONCLUSION: 1. No acute hemorrhage, mass or evidence of infarction. 2. Age-appropriate atrophic changes. 3. Stable small retention cyst in the left maxillary sinus. Assessment and Plan Plan 73-year-old male admitted secondary to acute CVA with left hemiplegia, now asymptomatic status post TPA acute CVA s/p TPA Status post TPA Doing well. No further neurological symptoms. Further imaging planned for today. Neurology following Borderline diabetes mellitus type 2 Follow blood sugars Insulin sliding scale Diabetic diet Hypertension Permissive hypertension until cleared by neurology h/o lung cancer History of resection in his left lobe Asymptomatic DVT prophylaxis SCDs Progress Note: Quality VTE Deep Vein Thrombosis/Pulmonary Embolism Present on Admission: No
--- NOTE | 2018-10-03 10:29 | CT ---
EXAM DATE: 10/03/2018 10:23 AM EST AGE/SEX: 73 years / Male INDICATIONS: Post TPA. Intercerebral hemorrhage. CLINICAL DATA: This is the patient's initial encounter. Patient reports that signs and symptoms have been present for 1 day and indicates a pain score of 0/10. MEDICAL/SURGICAL HISTORY: Hypertension. Carcinoma, lung. Diabetes. None. RADIATION DOSE: 56.35 CTDI (mGy) COMPARISON: [facility], CT HEAD W/O CONTRAST, 10/02/2018. . TECHNIQUE: CT of the head without contrast. Using automated exposure control and adjustment of the mA and/or kV according to patient size, radiation dose was kept as low as reasonably achievable to ob tain optimal diagnostic quality images. DICOM format image data is available electronically for revi ew and comparison. FINDINGS: Cerebrum: The ventricles are normal for age. No evidence of midline shift, mass lesion, hemorrhage or acute infarction. No extraaxial fluid collections are seen. Very subtle increased signal is seen in the basal ganglia on the left. This was present prior to TPA. Posterior Fossa: The cerebellum and brainstem are intact. The 4th ventricle is midline. The cerebe llopontine angle is unremarkable. Extracranial: The visualized portion of the orbits is intact. Skull: The calvaria is intact. No evidence of skull fracture. CONCLUSION: 1. Negative for parenchymal hemorrhage. . Electronically signed by: Adalberto Diallo MD Board Certified Radiologist 10/03/2018 10:27 AM EST
[2018-10-03 12:27] LABS: Free T4 (Free Thyroxine) 1.05 ng/dL (0.76-1.46); Vitamin B12 465 pg/mL (193-986)
[2018-10-03 16:02] VITALS: RESP 18
[2018-10-03 20:31] VITALS: BP 139/75; PULSE 69; TEMP 98; O2SAT 95
--- NOTE | 2018-10-03 21:02 | MB ---
cc: Mukul Quinones MD DATE: 10/03/2018 HISTORY OF PRESENT ILLNESS: The patient is a very pleasant 73-year-old gentleman who had a loss of consciousness that he was not aware occurred until he arrived at the ER. Therefore, he had no prodromal symptoms. He denies any chest pain, fever, chills, cough, GI or bleeding, PND, or orthopnea. PAST MEDICAL HISTORY: Diabetes, lung cancer, hypertension, anemia. ALLERGIES: NONE. SOCIAL HISTORY: Former smoker. Denies alcohol use. MEDICATIONS: Aspirin 325. PHYSICAL EXAMINATION: VITAL SIGNS: Temperature 98, pulse 72, respiratory rate 21, blood pressure 171/81 initially, currently blood pressure 138/68, heart rate has ranged between 64 and 76. GENERAL: He is alert and oriented x3, in no acute distress. NECK: Supple. No JVD. No bruit. CARDIOVASCULAR: S1, S2. No murmurs, rubs, gallops. LUNGS: Clear to auscultation bilaterally. ABDOMEN: Soft, nontender, nondistended with positive bowel sounds. EXTREMITIES: Lower extremity edema. LABORATORY DATA: Echocardiogram on 10/02/2018 shows EF of 50% to 55%, aneurysmal atrial septum, lipomatous hypertrophy of the interatrial septum. Trace to mild mitral regurgitation. Small pericardial effusion. Technically difficult study. Chest x-ray: No acute cardiopulmonary abnormalities identified. Stable postsurgical findings in the right hemithorax. EKG, 10/02/2018: Normal sinus rhythm at 68 beats per minute. Nonspecific ST-T wave changes. Normal intervals. Repeat EKG shows normal sinus rhythm and essentially normal. Negative CT head noncontrast. Head CTA: Negative CTA of the head. Neck CTA: No significant carotid stenosis. Head MRI: No acute hemorrhage, mass, or evidence of infarction. Age appropriate, atrophic changes. Stable small retention cyst in the left maxillary sinus. Head CT negative for parenchymal hemorrhage. LABORATORY DATA: White count 5.8, hemoglobin 12.1, hematocrit 36.1, platelet count of 241. INR is 1.0. Sodium 141, potassium 4.7, chloride 101, BUN 9, creatinine 1.3. Troponin less than 0.02. TSH is 1.210. INR is 1.0. ASSESSMENT AND PLAN: 1. Stroke alert. 2. Status post TPA. DISCUSSION: Consult obtained by Dr. Wang for outpatient [facility]. I do not perform this procedure. The patient will have to be referred to a brush clearer surveying who does this. Thus far, I do not see any cardiovascular event that is reported by the patient or by history. This appears to be completely neurologic. MD KHURRAM Thompson/vilma , 08:17 PM , 08:29 PM
--- NOTE | 2018-10-04 00:03 | P.AMA ---
AMA Note Discharge Summary AMA Statement: Patient Mazin Maloney has decided to leave the hospital against medical advice. This patient has the capacity to refuse care and understands the risks of leaving, including permanent disability and/or , and has had an opportunity to ask questions about his/her condition. The patient has been informed that he/she may return for care at any time, and follow up has been arranged/advised.
[2018-10-06 10:32] LABS: Anti-Nuclear Antibody Screen Pos (Neg)
[2018-10-08 14:16] LABS: Anti-Nuclear Antibody Titer 1:40 (Neg)
== END 2018-10-03 21:00 | disposition left against medical advice (07) ==
LOC: NEPC 10:00 → NEDA 11:47 → N03 12:45 → N05 10-03 15:48
PROVIDERS: ADMIT Hospitalist; ATTEND Hospitalist